=== PATIENT | male | born 1960 | race Caucasian/White ===

== ENCOUNTER 2021-12-24 04:26 | Inpatient (IN) | payer OTHER ==
[~2021-12-24] VITALS: Ht 167.6 cm; Wt 77.1 kg
[2021-12-24 04:46] VITALS: BP_SYST 187
--- NOTE | 2021-12-24 04:55 | NUR ---
Pt came from home with c/o of left sided flank pain 03/21 that started around [id number]. Pt reports having blood in the urine yesterday and denies having blood in the urine today. Pt ambulated with assistence to the restroom in the lobby. Denies N/V.
--- NOTE | 2021-12-24 05:05 | NUR ---
Urine collected and sent to lab.
--- NOTE | 2021-12-24 05:22 | NUR ---
# 20 gauge angiocath placed to right forearm. Use of asceptic technique. Opsite placed over site. Blood return noted. Flushed with 10 cc of normal saline. No evidence of infiltration noted. Patient tolerated well.
--- NOTE | 2021-12-24 05:22 | NUR ---
Pt to bed 6 at this time. MD Gale at bedside. Pt placed on satellite project site monitor and pulse oximetry.
[2021-12-24] MEDS ORDERED: ONDANSETRON HCL 4 MG/2 ML VIAL IVP ONE ×3 (05:30→07:00)
[2021-12-24] MEDS ORDERED: KETOROLAC TROMETHAMINE 30 MG VIAL IVP ONE (05:30)
[2021-12-24] MEDS ORDERED: MORPHINE 4 MG INJ. 4 MG/ML VIAL IVP ONE (05:30)
[2021-12-24] MEDS ORDERED: NACL 0.9% 1,000 ML IV ONE (05:30)
[2021-12-24] MEDS ORDERED: KETOROLAC TROMETHAMINE 30 MG VIAL ONE (05:39)
[2021-12-24 05:46] LABS: BILIRUBIN,URINE NEGATIVE (NEGATIVE); BLOOD, URINE 2+ (NEGATIVE); CLARITY/URINE CLEAR (CLEAR); COLOR,URINE YELLOW (YELLOW); GLUCOSE,URINE NEGATIVE (NEGATIVE); KETONES,URINE NEGATIVE (NEGATIVE); LEUKOCYTE ESTERASE ,URINE NEGATIVE (NEGATIVE); NITRITE, URINE NEGATIVE (NEGATIVE); PROTEIN URINE NEGATIVE (NEGATIVE); UROBILINOGEN,URINE 0.2 (0.2-1.0)
[2021-12-24 05:59] LABS: BACTERIA,URINE FEW /HPF (None Seen); RBC,URINE 0-3 /HPF (0-3)
[2021-12-24 06:21] LABS: CALCIUM 8.7 mg/dL (8.4-11.0); CREATININE 1.21 mg/dL (0.55-1.30); HEMOGLOBIN 14.2 g/dL (14.0-18.0); POTASSIUM 3.8 mmol/L (3.5-5.1)
[2021-12-24 06:26] LABS: BASOPHILS # (AUTO) 0.1 K/uL (0.0-0.2); BASOPHILS % (AUTO) 0.6 % (0.0-2.0); EOSINOPHILS % (AUTO) 0.2 % (0.0-4.0); HEMATOCRIT 39.8 % (36-54); LYMPHOCYTES # (AUTO) 1.1 K/uL (1.0-5.5); LYMPHOCYTES % (AUTO) 12.8 % (20.5-51.5); MEAN CORPUSCULAR HEMOGLOBIN 29 pg (27-31); MEAN CORPUSCULAR HGB CONC 36 % (32-36); MEAN CORPUSCULAR VOLUME 81 fL (79.0-98.0); MONOCYTES # (AUTO) 0.5 K/uL (0.0-1.0); MONOCYTES % (AUTO) 5.8 % (1.7-9.3); NEUTROPHILS # (AUTO) 7.1 K/uL (1.8-7.7); NEUTROPHILS % (AUTO) 80.6 % (40.0-70.0); PLATELET COUNT (AUTO) 209 K/uL (130-430); RED BLOOD CELL COUNT(AUTO) 4.94 MIL/uL (4.2-6.2); RED CELL DISTRIBUTION WIDTH 13.4 % (9.0-15.0); WHITE BLOOD COUNT (AUTO) 8.8 K/uL (4.8-10.8)
[2021-12-24 06:27] LABS: ALBUMIN 3.8 g/dL (3.4-4.8); TOTAL BILIRUBIN 0.9 mg/dL (0.0-1.0)
[2021-12-24] MEDS ORDERED: cefTRIAXone 1 GM in D5W 50 ML IV ONE (07:00)
[2021-12-24] MEDS ORDERED: HYDROmorphone 1 MG/ML INJ. CARTRIDGE IVP ONE (07:00)
--- NOTE | 2021-12-24 08:10 | NUR ---
NASAL SWAB OBTAINED FOR COVID TEST
[2021-12-24] MEDS: 0.45% NACL 1,000 ML IV SCH ×2 (09:00→19:59)
--- NOTE | 2021-12-24 09:00 | NUR ---
WAITING FOR MED SURG ROOM ASSIGNMENT
[2021-12-24] MEDS ORDERED: LOSA1TAB37 PO (09:26)
[2021-12-24] MEDS ORDERED: FINA5TAB3 PO (09:26)
[2021-12-24] MEDS ORDERED: FAMO20TA8 PO (09:26)
[2021-12-24] MEDS ORDERED: METF-518 PO (09:26)
[2021-12-24] MEDS ORDERED: PIOG30TA70 PO (09:26)
[2021-12-24] MEDS ORDERED: TERB250T89 PO (09:26)
[2021-12-24] MEDS ORDERED: CIPR500T5 PO (09:26)
[2021-12-24] MEDS ORDERED: TAMS-11 PO (09:26)
--- NOTE | 2021-12-24 09:29 | NUR ---
MEDICATION RECONCILIATION DONE.
[2021-12-24 09:45] VITALS: BP_SYST 140
--- NOTE | 2021-12-24 09:45 | NUR ---
TO [facility] TRANSFERRED CARE TO CARRIE ALVARADO. TRANSPORTED PT TO MED SURG DEPT ROOM 102-A, ACCOMPANIED BY HIS SON.
--- NOTE | 2021-12-24 14:03 | NUR ---
CONSULTATION PAGED/CALLED Reason for Consultation: [] NEPHROLITHIASIS Person Who was Notified: [] DONALD Consulting Physician: [] DR Yessenia GÓMEZ Edge Stripper Specialty: [] UROLOGIST Ordering Physician: [] DR YUAN
[2021-12-24 16:00] VITALS: BP_SYST 145
[2021-12-24] MEDS: HYDROmorphone 1 MG/ML INJ. CARTRIDGE IVP PRN (17:14)
[2021-12-24] MEDS: KETOROLAC TROMETHAMINE 30 MG VIAL IVP PRN (19:03)
[2021-12-24 20:00] VITALS: BP_SYST 123
[2021-12-25 02:00] VITALS: BP_SYST 116
--- NOTE | 2021-12-25 07:37 | NUR ---
OPENING NOTE: REPORT RC'VD FROM OUTGOING NOC RN, ALL CARES ASSUMED.
[2021-12-25 08:00] VITALS: BP_SYST 124
[2021-12-25] MEDS ORDERED: TERbinafine HCL 250 MG TABLET(LamISIL) PO SCH (09:00)
[2021-12-25] MEDS: HYDROmorphone 1 MG/ML INJ. CARTRIDGE IVP PRN ×4 (09:00→21:26)
[2021-12-25] MEDS ORDERED: LOSARTAN/HYDROCHLOROTHIAZIDE TAB (HYZAAR 50-12.5 MG) PO SCH (09:00)
[2021-12-25] MEDS: FAMOTIDINE 20 MG TABLET PO SCH (09:02)
[2021-12-25] MEDS: LOSARTAN POTASSIUM 50 MG TABLET (COZAAR) PO SCH (09:02)
[2021-12-25] MEDS: HYDROCHLOROTHIAZIDE 12.5 MG CAPSULE (HCTZ) PO SCH (09:02)
[2021-12-25] MEDS: TAMSULOSIN HCL 0.4 MG CAP PO SCH (09:02)
--- NOTE | 2021-12-25 09:16 | NUR ---
PAIN PRN AND EDUCATION: EDUCATION ON DX PROVIDED AT BEDSIDE WITH FAMILY PRESENT, PATIENT AND FAMILY HAVE BOTH VERBALIZED UNDERSTANDING. PATIENT C/C PAIN 8/10 TO LEFT FLANK, PATIENT MEDICATED WITH PRN ORDERED.
[2021-12-25] MEDS: FINASTERIDE 5 MG TABLET (PROSCAR) PO SCH (09:29)
[2021-12-25 09:43] LABS: BASOPHILS % (AUTO) 0.6 % (0.0-2.0); EOSINOPHILS # (AUTO) 0.1 K/uL (0.0-0.4); EOSINOPHILS % (AUTO) 0.9 % (0.0-4.0); HEMATOCRIT 39.6 % (36-54); HEMOGLOBIN 14.1 g/dL (14.0-18.0); LYMPHOCYTES # (AUTO) 1.8 K/uL (1.0-5.5); LYMPHOCYTES % (AUTO) 23.8 % (20.5-51.5); MEAN CORPUSCULAR HEMOGLOBIN 29 pg (27-31); MEAN CORPUSCULAR HGB CONC 36 % (32-36); MEAN CORPUSCULAR VOLUME 81 fL (79.0-98.0); MONOCYTES # (AUTO) 0.6 K/uL (0.0-1.0); MONOCYTES % (AUTO) 8.1 % (1.7-9.3); NEUTROPHILS # (AUTO) 5.1 K/uL (1.8-7.7); NEUTROPHILS % (AUTO) 66.6 % (40.0-70.0); PLATELET COUNT (AUTO) 199 K/uL (130-430); RED BLOOD CELL COUNT(AUTO) 4.91 MIL/uL (4.2-6.2); RED CELL DISTRIBUTION WIDTH 13.2 % (9.0-15.0); WHITE BLOOD COUNT (AUTO) 7.7 K/uL (4.8-10.8)
[2021-12-25 09:55] LABS: CALCIUM 8.6 mg/dL (8.4-11.0); CREATININE 1.52 mg/dL (0.55-1.30); POTASSIUM 3.7 mmol/L (3.5-5.1)
--- NOTE | 2021-12-25 09:59 | NUR ---
PER PATIENT PRN PAIN MEDICATION NOT EFFECTIVE, WILL MAKE MD AWARE
[2021-12-25] MEDS: 0.45% NACL 1,000 ML IV SCH ×2 (10:02→17:18)
[2021-12-25] MEDS: KETOROLAC TROMETHAMINE 30 MG VIAL IVP PRN (10:58)
--- NOTE | 2021-12-25 11:13 | NUR ---
SPOKE WITH PATIENT WEIGHER OPERATOR, MAMTA [phone]. UPDATES GIVEN. [phone] FAX. CM HAS REQUESTED PATIENT RECORDS TO BE FAXED, WILL MAKE CM OF HOSPITAL AWARE.
--- NOTE | 2021-12-25 11:57 | NUR ---
PRIMARY MD MAKING ROUNDS, BEDSIDE REPORT GIVEN AND ALL QUESTIONS ANSWERED.
[2021-12-25 12:00] VITALS: BP_SYST 134
[2021-12-25] MEDS ORDERED: NALOXONE HCL 0.4 MG/ML AMP (NARCAN) IVP PRN (12:00)
[2021-12-25] MEDS: cefTRIAXone 1 GM in D5W 50 ML IV SCH (12:07)
--- NOTE | 2021-12-25 12:12 | NUR ---
PRN PAIN MEDICATION GIVEN 10/10 PAIN
--- NOTE | 2021-12-25 13:00 | NUR ---
PATIENT C/O LEFT SIDED FLANK PAIN 10/10, EDUCATED ON PRN MEDICATION, FAMILY AT BEDSIDE.
--- NOTE | 2021-12-25 13:40 | NUR ---
PATIENT STATES, "THE PAIN WILL NOT STOP", PATIENT IN NO ACUTE DISTRESS, VITALS REMAIN STABLE, DIVERSION ACTIVITIES ATTEMPTED WITH NO SUCCESS. BLAKE CRISTINA MD
--- NOTE | 2021-12-25 13:45 | NUR ---
SPOKE WITH UROLOGY ZUMBA INSTRUCTOR, ZUMBA INSTRUCTOR WILL REVIEW PATIENTS MEDICAL RECORDS AND CALL BACK
--- NOTE | 2021-12-25 13:50 | NUR ---
PATIENT MADE AWARE OF UROLOGY DISCUSSION, PATIENT STATES, " I WANT MORE PAIN MEDICATION". EDUCATED PATIENT ON FREQUENCY AND SIDE EFFECTS OF PAIN MEDICATION.
--- NOTE | 2021-12-25 14:00 | NUR ---
DAUGHTERS REMAIN AT BEDSIDE, PATIENT CONTINUES TO HAVE LEFT FLANK PAIN R/T RENAL STONES, PAIN MEDICATION HAS BEEN INEFFECTIVE. LAST DOSE OF PAIN MEDICATION CAUSED SEVERE NAUSEA AND DIZZINESS.
--- NOTE | 2021-12-25 14:15 | NUR ---
NO RETURN CALL AT THIS TIME FROM UROLOGY,
--- NOTE | 2021-12-25 14:19 | NUR ---
FOLLOWED UP THE CONSULT WITH DR GÓMEZ RE: AGONIZING L FLANK PAIN DUE TO RENAL STONE. SPOKE TO
--- NOTE | 2021-12-25 15:30 | NUR ---
SPOKE WITH PRIMARY MD, NEW CONSULT PLACED FOR DR. BILLS UROLOGY.
[2021-12-25 16:00] VITALS: BP_SYST 133
--- NOTE | 2021-12-25 16:11 | NUR ---
C/C 10/10 FLANK PAIN, PRN DILAUDID 1MG GIVEN WITH ZOFRAN FOR NAUSEA
[2021-12-25 20:10] VITALS: BP_SYST 141
[2021-12-26] MEDS: HYDROmorphone 1 MG/ML INJ. CARTRIDGE IVP PRN ×3 (01:49→16:05)
[2021-12-26 02:00] VITALS: BP_SYST 137
[2021-12-26] MEDS: 0.45% NACL 1,000 ML IV SCH ×3 (02:23→18:03)
[2021-12-26] MEDS: ONDANSETRON HCL 4 MG/2 ML VIAL IVP PRN ×2 (02:36→12:22)
[2021-12-26 07:41] LABS: CALCIUM 9.3 mg/dL (8.4-11.0); CREATININE 1.5 mg/dL (0.55-1.30); POTASSIUM 3.7 mmol/L (3.5-5.1)
[2021-12-26 08:05] VITALS: BP_SYST 143
--- NOTE | 2021-12-26 08:26 | NUR ---
DR BILLS'S FAMILY MEDICINE PHYSICIAN ASSISTANT , SEBASTIÁN, HERE AND TALKING TO PT RE POC.
[2021-12-26 08:30] LABS: BASOPHILS % (AUTO) 0.3 % (0.0-2.0); EOSINOPHILS % (AUTO) 0.3 % (0.0-4.0); HEMATOCRIT 40.7 % (36-54); HEMOGLOBIN 14.3 g/dL (14.0-18.0); LYMPHOCYTES # (AUTO) 1.2 K/uL (1.0-5.5); LYMPHOCYTES % (AUTO) 13.9 % (20.5-51.5); MEAN CORPUSCULAR HEMOGLOBIN 29 pg (27-31); MEAN CORPUSCULAR HGB CONC 35 % (32-36); MEAN CORPUSCULAR VOLUME 81 fL (79.0-98.0); MONOCYTES # (AUTO) 0.7 K/uL (0.0-1.0); MONOCYTES % (AUTO) 7.3 % (1.7-9.3); NEUTROPHILS % (AUTO) 78.2 % (40.0-70.0); PLATELET COUNT (AUTO) 191 K/uL (130-430); RED BLOOD CELL COUNT(AUTO) 5.01 MIL/uL (4.2-6.2); RED CELL DISTRIBUTION WIDTH 13.3 % (9.0-15.0); WHITE BLOOD COUNT (AUTO) 8.9 K/uL (4.8-10.8)
[2021-12-26] MEDS: FAMOTIDINE 20 MG TABLET PO SCH (08:46)
[2021-12-26] MEDS: TAMSULOSIN HCL 0.4 MG CAP PO SCH (08:46)
[2021-12-26] MEDS: HYDROCHLOROTHIAZIDE 12.5 MG CAPSULE (HCTZ) PO SCH (08:48)
[2021-12-26] MEDS: LOSARTAN POTASSIUM 50 MG TABLET (COZAAR) PO SCH (08:49)
[2021-12-26] MEDS: FINASTERIDE 5 MG TABLET (PROSCAR) PO SCH (08:52)
[2021-12-26 12:00] VITALS: BP_SYST 160
[2021-12-26] MEDS: cefTRIAXone 1 GM in D5W 50 ML IV SCH (12:19)
--- NOTE | 2021-12-26 12:24 | NUR ---
pt given dilaudid and then zofran for pain and nausea respectively.
[2021-12-26 15:49] VITALS: BP_SYST 149
--- NOTE | 2021-12-26 18:17 | NUR ---
pt still complain of left flank pain, given 2x dilaudid for pain. pt seen by dr. vidal's machine shop worker. pt has no hematuria. pt instructed to void into the urinal so the nurses can strain the urine.
[2021-12-26 20:00] VITALS: BP_SYST 133
[2021-12-27] VITALS: BP_SYST 128
[2021-12-27] MEDS: 0.45% NACL 1,000 ML IV SCH ×2 (02:23→10:23)
[2021-12-27 07:13] LABS: CALCIUM 8.8 mg/dL (8.4-11.0); CREATININE 1.56 mg/dL (0.55-1.30); POTASSIUM 3.8 mmol/L (3.5-5.1)
[2021-12-27 07:59] LABS: BASOPHILS % (AUTO) 0.7 % (0.0-2.0); EOSINOPHILS % (AUTO) 0.5 % (0.0-4.0); HEMATOCRIT 40.9 % (36-54); HEMOGLOBIN 14.5 g/dL (14.0-18.0); LYMPHOCYTES # (AUTO) 1.1 K/uL (1.0-5.5); LYMPHOCYTES % (AUTO) 16.9 % (20.5-51.5); MEAN CORPUSCULAR HEMOGLOBIN 29 pg (27-31); MEAN CORPUSCULAR HGB CONC 35 % (32-36); MEAN CORPUSCULAR VOLUME 81 fL (79.0-98.0); MONOCYTES # (AUTO) 0.7 K/uL (0.0-1.0); MONOCYTES % (AUTO) 10.1 % (1.7-9.3); NEUTROPHILS # (AUTO) 4.6 K/uL (1.8-7.7); NEUTROPHILS % (AUTO) 71.8 % (40.0-70.0); PLATELET COUNT (AUTO) 180 K/uL (130-430); RED BLOOD CELL COUNT(AUTO) 5.06 MIL/uL (4.2-6.2); RED CELL DISTRIBUTION WIDTH 13.1 % (9.0-15.0); WHITE BLOOD COUNT (AUTO) 6.5 K/uL (4.8-10.8)
[2021-12-27 08:00] VITALS: BP_SYST 122
--- NOTE | 2021-12-27 08:00 | NUR ---
has been assessed as indicted. He has been noted to be both pleasant and cooperative. he anticipates being DC to home, he does complain of pain and has been successfully treated with tylenol
[2021-12-27] MEDS ORDERED: FAMO20TA8 PO (09:18)
[2021-12-27] MEDS ORDERED: ACET500P25 PO (09:18)
[2021-12-27] MEDS ORDERED: CEPH250C PO (09:18)
[2021-12-27] MEDS ORDERED: FINA5TAB3 PO (09:18)
[2021-12-27] MEDS ORDERED: TAMS-11 PO (09:18)
[2021-12-27] MEDS ORDERED: ACETAMINOPHEN 325 MG TABLET PO PRN (09:30)
[2021-12-27] MEDS: TAMSULOSIN HCL 0.4 MG CAP PO SCH (09:39)
[2021-12-27] MEDS: FAMOTIDINE 20 MG TABLET PO SCH (09:39)
[2021-12-27] MEDS: FINASTERIDE 5 MG TABLET (PROSCAR) PO SCH (09:40)
[2021-12-27] MEDS: HYDROCHLOROTHIAZIDE 12.5 MG CAPSULE (HCTZ) PO SCH (09:41)
[2021-12-27] MEDS: LOSARTAN POTASSIUM 50 MG TABLET (COZAAR) PO SCH (09:41)
[2021-12-27 12:00] VITALS: BP_SYST 138
[2021-12-27] MEDS: cefTRIAXone 1 GM in D5W 50 ML IV SCH (12:37)
[2021-12-27 14:37] VITALS: BP_SYST 138
--- NOTE | 2021-12-27 16:00 | NUR ---
Mr benedict has been DC to home. IV access has been removed. DC instructions have been reviewed. He expressed that he understood the instructions and signed a document to indicate this. New meds have been verified at the [facility] pharmacy of his choice. He will follow up with urology and has been assisted with this appointment by his private dependency case manager. He was driven home by his son in a private vehicle. He was compliant with the plan to DC home at the time of DC. At the time of DC he had no s/s of distress or discomfort Addendum: 12/27/21 at 1606 by Ki Alves RN He was escorted out of the building via WC and accompanied by staff
== END 2021-12-27 16:00 | disposition home or self-care (01) | DRG 690 ==
LOC: SED 04:26 → SMU 07:57
PROVIDERS: ADMIT Preventive Medicine Preventive Medicine/Occupational Environmental Medicine; ATTEND Preventive Medicine Preventive Medicine/Occupational Environmental Medicine
DX: N13.6 Pyonephrosis (principal); Z20.822 Contact with and (suspected) exposure to COVID-19; E11.9 Type 2 diabetes mellitus without complications; I10 Essential (primary) hypertension; N17.9 Acute kidney failure, unspecified
CPT/HCPCS: 36415; 76376; 80048; 80053; 81000; 83605; 85025; 87040; 87086; 96361; 96365; 96375; 99285; J0696; J1170; J1885; J2270; J2405; J7060